=== PATIENT | female | born 1965 | race Caucasian/White ===

== ENCOUNTER 2018-01-14 11:26 | Outpatient (CLI) | payer BC | END 2018-01-14 11:27 | disposition home or self-care (01) | LOC: BICMAMMO 11:26 | PROVIDERS: ATTEND Student in an Organized Health Care Education/Training Program | DX: Z12.31 Encounter for screening mammogram for malignant neoplasm of breast (principal); Z80.3 Family history of malignant neoplasm of breast | CPT/HCPCS: 77063; 77067 ==

== ENCOUNTER 2019-01-23 12:36 | Outpatient (CLI) | payer BC ==
--- NOTE | 2019-01-23 13:25 | MMO ---
Bilateral MAMMO Bilat Screen [facility]. CLINICAL HISTORY: Patient is 53 years old and is seen for screening. The patient has no family history of breast cancer. The patient has no personal history of cancer. VIEWS: The views performed were: bilateral craniocaudal with tomosynthesis; bilateral mediolateral oblique with tomosynthesis; and right exaggerated craniocaudal. FILMS COMPARED: The present examination has been compared to a prior imaging study performed at [facility] on 01/14/2018. MAMMOGRAM FINDINGS: There are scattered fibroglandular densities. There are stable benign appearing calcifications seen in both breasts. There are no suspicious masses, suspicious calcifications, or new areas of architectural distortion. IMPRESSION: THERE IS NO MAMMOGRAPHIC EVIDENCE OF MALIGNANCY. A ROUTINE FOLLOW-UP MAMMOGRAM IN 1 YEAR IS RECOMMENDED. THE RESULTS OF THIS EXAM WERE SENT TO THE PATIENT. ACR BI-RADS Category 2 - Benign finding MAMMOGRAPHY NOTE: 1. A negative mammogram report should not delay a biopsy if a dominant of clinically suspicious mass is present. 2. Approximately 10% to 15% of breast cancers are not detected by mammography. 3. Adenosis and dense breasts may obscure an underlying neoplasm.
== END 2019-01-23 12:37 | disposition home or self-care (01) ==
LOC: BICMAMMO 12:36
PROVIDERS: ATTEND Family Medicine
DX: Z12.31 Encounter for screening mammogram for malignant neoplasm of breast (principal)
CPT/HCPCS: 77063; 77067

== ENCOUNTER 2022-08-01 23:15 | Inpatient (IN) | payer OTHER ==
[2022-08-02 00:39] VITALS: BMI 28.3
[2022-08-02] MEDS ORDERED: Bisacodyl 5 MG TAB PO PRN (01:40)
[2022-08-02] MEDS ORDERED: Guaifenesin DM 100-10/5 ML UDCUP PO PRN (01:40)
[2022-08-02] MEDS ORDERED: Ondansetron ODT 4 MG TAB PO PRN (01:40)
[2022-08-02] MEDS ORDERED: Ondansetron PF 4 MG/2 ML Vial IVP PRN (01:40)
[2022-08-02] MEDS ORDERED: Senokot S 8.6-50 MG TAB PO PRN (01:40)
[2022-08-02] MEDS ORDERED: Acetaminophen 650 MG Suppository PR PRN (01:40)
[2022-08-02] MEDS ORDERED: Bisacodyl 10 MG SUPP PR PRN (01:40)
[2022-08-02] MEDS ORDERED: Sodium Chloride 0.9% 1,000 ML IV SCH (01:45)
[2022-08-02 03:57] LABS: Amphetamine Not Detected (NotDetected); Barbiturates Screen Not Detected (NotDetected); Benzodiazepine Screen Not Detected (NotDetected); Cocaine Metabolite Screen Not Detected (NotDetected); Methadone Not Detected (NotDetected); Methamphetamine Not Detected (NotDetected); Opiate Screen Not Detected (NotDetected); Oxycodone Screen Not Detected (NotDetected); Phencyclidine (PCP) Not Detected (NotDetected); THC/Cannabinoid Screen Not Detected (NotDetected); Tricyclic Screen Not Detected (NotDetected)
[2022-08-02] MEDS: Acetaminophen 325 MG TAB PO PRN ×2 (05:22→17:19)
[2022-08-02] MEDS ORDERED: VANCOMYCIN 2 GRAM/500 ML BAG 2 GM in Premix Bag 1 BAG IVPB SCH (05:45)
[2022-08-02 06:46] LABS: Band 6 % (5-11); Eosinophils 4 % (0-10); Hemoglobin 12.4 g/dL (12.0-16.0); Lymphocytes 50 % (21-51); MDiff Complete? YES; Mean Corpuscular HGB CONC 33.5 g/dL (32.0-36.0); Mean Corpuscular Volume 95.5 fl (78.0-98.0); Mean Platelet Volume 10.6 fL (7.4-10.4); Monocytes 8 % (0-10); Neutrophil 28 % (42-75); Platelet Count 35 10x3/uL (130-400); Platelet Morphology Comment Appears Decreased; RBC Distribution Width 12.2 % (11.5-14.5); RBC Morphology Normal; Reactive Lymphocytes 2 % (0-10); Red Blood Cell (RBC) Count 3.86 mill/uL (4.20-5.40)
[2022-08-02 06:50] LABS: ALT (SGPT) 90 U/L (8-55); AST (SGOT) 100 U/L (5-34); Albumin 3.1 g/dL (3.5-5.0); Alkaline Phosphatase 106 U/L (40-110); Anion Gap 13 mmol/L (10-20); BUN (Urea Nitrogen) 6 mg/dL (9.8-20.1); Bilirubin, Total 0.5 mg/dL (0.2-1.2); Calc. Creatinine Clearance 108 mL/min (70-130); Calcium 8.1 mg/dL (7.8-10.44); Carbon Dioxide 22 mmol/L (22-29); Chloride 104 mmol/L (98-107); Cholesterol 95 mg/dl (< 200 Desired); Estimated GFR 101; Globulin 2.9 g/dL (2.4-3.5); Glucose 85 mg/dL (70-105); HDL Cholesterol Less than 8 mg/dL (>60 Neg Risk); Magnesium 1.8 mg/dL (1.6-2.6); Potassium 3.7 mmol/L (3.5-5.1); Sodium 135 mmol/L (136-145); Triglycerides 126 mg/dL (Less than 150)
[2022-08-02 07:06] LABS: Vitamin B12 543 pg/mL (211-911)
[2022-08-02 07:16] LABS: HBCM Index 0.06 S/CO (0-0.79); HBSAg Index 0.32 S/CO (0-0.99); HIV (1/2) Antibody/Antigen Non-Reactive (NonReactive); Hep A IgM AB Non-Reactive (NonReactive); Hep A IgM S/CO 0.17 S/CO (0-0.79); Hep B Surf Ag Non-Reactive S/CO (NonReactive); Hep C IgG Ab Non-Reactive (NonReactive); Hep C Index 0.08 S/CO (0-0.79); Hepatitis B Core IgM Abs Non-Reactive (NonReactive)
[2022-08-02] MEDS: Cefepime 2 GM in Sodium Chloride 0.9% 100 ML IVPB SCH ×2 (08:07→20:41)
[2022-08-02] MEDS: Famotidine 20 MG TAB PO SCH ×2 (08:07→20:40)
[2022-08-02] MEDS: Famotidine/PF 20 mg/2ml Vial SLOW IVP SCH ×2 (08:13→20:41)
[2022-08-02 11:29] LABS: Iron 34 ug/dL (50-170); Iron Binding Capacity, Total 200 mcg/dL (265-497)
[2022-08-02 11:37] LABS: Reticulocyte Count 0.8 % (0.5-1.5)
[2022-08-02 12:20] LABS: MONO NEGATIVE CONTROL ZONE White (Negative) (White); MONO POSITIVE CONTROL Pink Line (Positive) (PINK/RED); Mononucleosis NEGATIVE (NEGATIVE)
[2022-08-02] MEDS: Vancomycin 1 GM in Premix Bag 1 BAG IVPB SCH (17:12)
[2022-08-03] MEDS: Vancomycin 1 GM in Premix Bag 1 BAG IVPB SCH ×2 (05:43→18:05)
[2022-08-03] MEDS: Acetaminophen 325 MG TAB PO PRN ×3 (05:48→18:04)
[2022-08-03] MEDS: Cefepime 2 GM in Sodium Chloride 0.9% 100 ML IVPB SCH ×2 (09:10→20:04)
[2022-08-03] MEDS: Famotidine 20 MG TAB PO SCH ×2 (09:10→20:11)
[2022-08-03] MEDS: Famotidine/PF 20 mg/2ml Vial SLOW IVP SCH ×2 (09:17→19:56)
[2022-08-03 11:07] LABS: Anion Gap 11 mmol/L (10-20); BUN (Urea Nitrogen) 4 mg/dL (9.8-20.1); Calc. Creatinine Clearance 105 mL/min (70-130); Calcium 8.8 mg/dL (7.8-10.44); Carbon Dioxide 29 mmol/L (22-29); Chloride 103 mmol/L (98-107); Estimated GFR 97; Glucose 117 mg/dL (70-105); Potassium 3.7 mmol/L (3.5-5.1); Sodium 139 mmol/L (136-145)
[2022-08-03 11:56] LABS: Band 22 % (5-11); Eosinophils 5 % (0-10); Hemoglobin 12.7 g/dL (12.0-16.0); Lymphocytes 33 % (21-51); MDiff Complete? YES; Mean Corpuscular HGB CONC 33.3 g/dL (32.0-36.0); Mean Corpuscular Hemoglobin 32.1 pg (27.0-31.0); Mean Corpuscular Volume 96.3 fl (78.0-98.0); Mean Platelet Volume 9.4 fL (7.4-10.4); Monocytes 14 % (0-10); Neutrophil 18 % (42-75); Platelet Count 61 10x3/uL (130-400); Platelet Morphology Comment Appears Decreased; RBC Distribution Width 12.3 % (11.5-14.5); RBC Morphology Normal; Reactive Lymphocytes 7 % (0-10); Red Blood Cell (RBC) Count 3.96 mill/uL (4.20-5.40); White Blood Cell (WBC) Count 1.8 10x3/uL (4.8-10.8)
[2022-08-03 17:22] LABS: Vancomycin, Trough 9.7 ug/mL
[2022-08-03] MEDS ORDERED: Naproxen 500 MG TAB PO SCH (18:15)
[2022-08-03] MEDS: Vancomycin 1.5 GRAM/300 ML BAG 1.5 GM in Premix Bag 1 BAG IVPB SCH (19:56)
[2022-08-04 06:46] LABS: Hemoglobin 13.1 g/dL (12.0-16.0); Mean Corpuscular HGB CONC 32.7 g/dL (32.0-36.0); Mean Corpuscular Hemoglobin 31.9 pg (27.0-31.0); Mean Corpuscular Volume 97.5 fl (78.0-98.0); Mean Platelet Volume 9.8 fL (7.4-10.4); Platelet Count 43 10x3/uL (130-400); RBC Distribution Width 12.5 % (11.5-14.5); Red Blood Cell (RBC) Count 4.12 mill/uL (4.20-5.40)
[2022-08-04 06:56] LABS: Anion Gap 12 mmol/L (10-20); Calc. Creatinine Clearance 102 mL/min (70-130); Carbon Dioxide 29 mmol/L (22-29); Chloride 102 mmol/L (98-107); Estimated GFR 94; Glucose 79 mg/dL (70-105); Potassium 4.3 mmol/L (3.5-5.1); Sodium 139 mmol/L (136-145)
[2022-08-04 07:13] LABS: ALT (SGPT) 60 U/L (8-55); AST (SGOT) 46 U/L (5-34); Albumin 3.1 g/dL (3.5-5.0); Alkaline Phosphatase 91 U/L (40-110); Bilirubin, Direct 0.2 mg/dL (0.1-0.3); Bilirubin, Total 0.5 mg/dL (0.2-1.2); Protein, Total 6.3 g/dL (6.0-8.3)
[2022-08-04 07:47] LABS: Band 20 % (5-11); Eosinophils 8 % (0-10); Lymphocytes 31 % (21-51); MDiff Complete? YES; Monocytes 20 % (0-10); Neutrophil 13 % (42-75); Platelet Morphology Comment Appears Decreased; RBC Morphology Normal; Reactive Lymphocytes 7 % (0-10)
[2022-08-04 08:22] LABS: BUN (Urea Nitrogen) 6 mg/dL (9.8-20.1)
[2022-08-04] MEDS: Famotidine 20 MG TAB PO SCH ×2 (08:22→20:42)
[2022-08-04] MEDS: Cefepime 2 GM in Sodium Chloride 0.9% 100 ML IVPB SCH ×2 (08:22→22:33)
[2022-08-04] MEDS: Famotidine/PF 20 mg/2ml Vial SLOW IVP SCH ×2 (08:23→20:47)
[2022-08-04] MEDS: Vancomycin 1.5 GRAM/300 ML BAG 1.5 GM in Premix Bag 1 BAG IVPB SCH ×2 (08:23→20:43)
[2022-08-04] MEDS: Acetaminophen 325 MG TAB PO PRN ×2 (08:30→20:42)
[2022-08-04] MEDS: Acyclovir 400 mg Tablet PO SCH ×2 (16:00→20:42)
[2022-08-05] MEDS: FLU VACC QS2022-23(6MOS UP)/PF 60 MCG/0.5 ML SYRINGE IM ONE ×2 (00:01)
[2022-08-05 07:39] LABS: Vancomycin, Trough 19.2 ug/mL
[2022-08-05 07:41] LABS: Anion Gap 13 mmol/L (10-20); BUN (Urea Nitrogen) 7 mg/dL (9.8-20.1); Calc. Creatinine Clearance 98 mL/min (70-130); Calcium 9.1 mg/dL (7.8-10.44); Carbon Dioxide 29 mmol/L (22-29); Chloride 102 mmol/L (98-107); Estimated GFR 90; Glucose 82 mg/dL (70-105); Potassium 4.3 mmol/L (3.5-5.1); Sodium 140 mmol/L (136-145)
[2022-08-05] MEDS: Vancomycin 1.5 GRAM/300 ML BAG 1.5 GM in Premix Bag 1 BAG IVPB SCH ×2 (08:30→21:00)
[2022-08-05] MEDS: Famotidine 20 MG TAB PO SCH ×2 (08:31→21:17)
[2022-08-05] MEDS: Acyclovir 400 mg Tablet PO SCH ×3 (08:31→21:24)
[2022-08-05 08:32] LABS: Band 19 % (5-11); Eosinophils 9 % (0-10); Hemoglobin 13.2 g/dL (12.0-16.0); Lymphocytes 30 % (21-51); MDiff Complete? YES; Mean Corpuscular HGB CONC 33.7 g/dL (32.0-36.0); Mean Corpuscular Hemoglobin 32.7 pg (27.0-31.0); Mean Corpuscular Volume 97.1 fl (78.0-98.0); Metamyelocyte 2 % (0-0); Monocytes 21 % (0-10); Neutrophil 16 % (42-75); Platelet Count 41 10x3/uL (130-400); Platelet Morphology Comment Appears Decreased; RBC Distribution Width 12.8 % (11.5-14.5); RBC Morphology Normal; Reactive Lymphocytes 3 % (0-10); Red Blood Cell (RBC) Count 4.04 mill/uL (4.20-5.40); White Blood Cell (WBC) Count 2.1 10x3/uL (4.8-10.8)
[2022-08-05] MEDS: Famotidine/PF 20 mg/2ml Vial SLOW IVP SCH ×2 (08:32→21:17)
[2022-08-05] MEDS: Cefepime 2 GM in Sodium Chloride 0.9% 100 ML IVPB SCH ×3 (08:32→23:31)
[2022-08-05] MEDS: Acetaminophen 325 MG TAB PO PRN ×2 (10:59→15:49)
[2022-08-06 06:56] LABS: Hemoglobin 12.6 g/dL (12.0-16.0); Mean Corpuscular HGB CONC 32.5 g/dL (32.0-36.0); Mean Corpuscular Hemoglobin 31.4 pg (27.0-31.0); Mean Corpuscular Volume 96.6 fl (78.0-98.0); Mean Platelet Volume 9.2 fL (7.4-10.4); Platelet Count 48 10x3/uL (130-400); RBC Distribution Width 13.1 % (11.5-14.5); Red Blood Cell (RBC) Count 4.02 mill/uL (4.20-5.40); White Blood Cell (WBC) Count 2.2 10x3/uL (4.8-10.8)
[2022-08-06 07:09] LABS: Anion Gap 11 mmol/L (10-20); BUN (Urea Nitrogen) 4 mg/dL (9.8-20.1); Calc. Creatinine Clearance 113 mL/min (70-130); Calcium 8.8 mg/dL (7.8-10.44); Carbon Dioxide 27 mmol/L (22-29); Chloride 102 mmol/L (98-107); Estimated GFR 102; Glucose 84 mg/dL (70-105); Potassium 3.2 mmol/L (3.5-5.1); Sodium 137 mmol/L (136-145)
[2022-08-06] MEDS: Acyclovir 400 mg Tablet PO SCH ×3 (08:52→20:39)
[2022-08-06] MEDS: Cefepime 2 GM in Sodium Chloride 0.9% 100 ML IVPB SCH (08:55)
[2022-08-06] MEDS: Vancomycin 1.5 GRAM/300 ML BAG 1.5 GM in Premix Bag 1 BAG IVPB SCH (08:55)
[2022-08-06] MEDS: Famotidine 20 MG TAB PO SCH (09:08)
[2022-08-06] MEDS: Famotidine/PF 20 mg/2ml Vial SLOW IVP SCH (09:08)
[2022-08-06] MEDS ORDERED: Potassium Chloride 20 MEQ TAB PO SCH (10:45)
[2022-08-06] MEDS ORDERED: Electrolyte Replacement Protocol 1 EACH FS SCH (10:45)
[2022-08-06] MEDS ORDERED: Levothyroxine Sodium 75 MCG TAB PO SCH (11:00)
[2022-08-06 11:56] LABS: Band 5 % (5-11); Eosinophils 8 % (0-10); Lymphocytes 57 % (21-51); MDiff Complete? YES; Monocytes 13 % (0-10); Myelocyte 1 % (0-0); Neutrophil 9 % (42-75); Platelet Morphology Comment Appears Decreased; Polychromasia SLIGHT = 2-3 cells (100X) (0-2/hpf); Reactive Lymphocytes 5 % (0-10)
[2022-08-06 19:35] LABS: Vancomycin, Trough 17.8 ug/mL
[2022-08-07] MEDS: Acetaminophen 325 MG TAB PO PRN (03:29)
[2022-08-07] MEDS ORDERED: Levothyroxine Sodium 75 MCG TAB PO SCH (06:00)
[2022-08-07 07:29] LABS: Hemoglobin 12.9 g/dL (12.0-16.0); Mean Corpuscular HGB CONC 32.4 g/dL (32.0-36.0); Mean Corpuscular Hemoglobin 31.4 pg (27.0-31.0); Mean Platelet Volume 9.5 fL (7.4-10.4); Platelet Count 55 10x3/uL (130-400); RBC Distribution Width 13.3 % (11.5-14.5); Red Blood Cell (RBC) Count 4.11 mill/uL (4.20-5.40); White Blood Cell (WBC) Count 2.4 10x3/uL (4.8-10.8)
[2022-08-07 07:57] LABS: Anion Gap 14 mmol/L (10-20); BUN (Urea Nitrogen) 4 mg/dL (9.8-20.1); Calc. Creatinine Clearance 105 mL/min (70-130); Calcium 9.1 mg/dL (7.8-10.44); Carbon Dioxide 28 mmol/L (22-29); Chloride 103 mmol/L (98-107); Estimated GFR 97; Glucose 85 mg/dL (70-105); Potassium 3.8 mmol/L (3.5-5.1); Sodium 141 mmol/L (136-145)
[2022-08-07] MEDS: Acyclovir 400 mg Tablet PO SCH (08:14)
[2022-08-07 09:18] VITALS: BP 116/77; TEMP 97.9
[2022-08-07 09:34] LABS: Band 12 % (5-11); Eosinophils 14 % (0-10); Lymphocytes 46 % (21-51); MDiff Complete? YES; Monocytes 20 % (0-10); Neutrophil 8 % (42-75); Platelet Morphology Comment Appears Decreased; RBC Morphology Normal
[2022-08-07] MEDS ORDERED: FENTANYL 50 MCG/ML 1 ML VIAL ONE (09:41)
[2022-08-07] MEDS ORDERED: Sodium Bicarbonate 2.5 MEQ/5 ML VIAL ONE (09:41)
== END 2022-08-07 15:27 | disposition home or self-care (01) | DRG 757 ==
LOC: T4-B 08-02 00:28
PROVIDERS: ADMIT Family Medicine; ATTEND Family Medicine
PROC: 07DR3ZX Extraction of Iliac Bone Marrow, Percutaneous Approach, Diagnostic (ICD-10-PCS; principal; 2022-08-07)
PROC: 079T3ZX Drainage of Bone Marrow, Percutaneous Approach, Diagnostic (ICD-10-PCS; 2022-08-07)
DX: A60.00 Herpesviral infection of urogenital system, unspecified (principal); K72.00 Acute and subacute hepatic failure without coma; R50.81 Fever presenting with conditions classified elsewhere; D69.6 Thrombocytopenia, unspecified; E87.6 Hypokalemia; E78.5 Hyperlipidemia, unspecified; E03.9 Hypothyroidism, unspecified; K76.0 Fatty (change of) liver, not elsewhere classified; R74.8 Abnormal levels of other serum enzymes; Z20.822 Contact with and (suspected) exposure to COVID-19; D70.3 Neutropenia due to infection; Z88.1 Allergy status to other antibiotic agents
CPT/HCPCS: 36415; 38222; 77012; 80048; 80053; 80061; 80074; 80076; 80202; 80306; 82607; 82728; 83010; 83540; 83550; 83615; 83735; 84443; 85025; 85046; 85097; 86308; 86880; 87389; 88184; 88237; 88305; 88311; 88313; 88342; J0692; J2405; J3010; J3370; J3370-JW; J3490; J7050; S0028